=== PATIENT | female | born 1960 | race Caucasian/White ===

== ENCOUNTER 2020-10-06 17:40 | Emergency (ER) | payer MEDICAID ==
[~2020-10-06] VITALS: Ht 157.5 cm; Wt 66.7 kg
[2020-10-06 18:36] VITALS: BP_SYST 159
--- NOTE | 2020-10-06 18:36 | NUR ---
Pt triaged and placed in waiting room
[2020-10-06] MEDS: ACETAMINOPHEN 325 MG TABLET PO ONE (20:42)
[2020-10-06] MEDS: KETOROLAC TROMETHAMINE 15 MG VIAL IM ONE (20:42)
--- NOTE | 2020-10-06 20:53 | NUR ---
Patient to ER bed 3 to gown for evaluation. Side rails up. Report given to YESSICA Olson.
--- NOTE | 2020-10-06 20:58 | NUR ---
PATIENT AAOX4 AND AMBULATORY FROM HOME C/O BACK PAIN X 1 MONTH THAT RADIATES TO LEG. DENIES ANY TRAUMA AT THIS TIME. CURRENTLY RATING PAIN 9/10 ON THE PAIN SCALE. VSS
--- NOTE | 2020-10-06 21:00 | NUR ---
ROMAIN Farooq at bedside examining patient.
[2020-10-06 21:28] VITALS: BP_SYST 159
--- NOTE | 2020-10-06 21:28 | NUR ---
Patient given written and verbal discharge instructions and verbalizes understanding. DR. PAULINA HOYOS MD discussed with patient the results and treatment provided. Patient in stable condition. ID arm band removed. IV catheter removed intact and dressing applied, no active bleeding. Patient educated on pain management and to follow up with PMD. Pain Scale 0/10. Opportunity for questions provided and answered. Medication side effect fact sheet provided.
== END 2020-10-06 21:28 | disposition home or self-care (01) ==
LOC: SED 17:40
DX: M54.5 Low back pain (principal)
CPT/HCPCS: 96372; 99283; J1885